=== PATIENT | male | born 1985 | race African-American/Black ===

== ENCOUNTER 2018-01-21 16:54 | Inpatient (IN) | payer MEDICAID ==
[~2018-01-21] VITALS: Ht 205.7 cm; Wt 113.4 kg
[2018-01-21] MEDS ORDERED: KETOROLAC 30MG/ML VIAL IM ONE (21:15)
[2018-01-21 22:57] LABS: CHLORIDE 108 mEq/L (98-107)
[2018-01-21 22:59] LABS: BASOPHILS % 0.5 % (0.0-2.0); EOSINOPHILS % 3.9 % (0.0-5.0); HEMATOCRIT. 40.3 % (42.0-52.0); HEMOGLOBIN. 13.3 g/dL (14.0-18.0); LYMPHOCYTES % 19.3 % (20.0-50.0); MEAN CORPUSCULAR HEMOGLOBIN 27.8 pg (28.0-32.0); MEAN CORPUSCULAR VOLUME 84.5 fL (80.0-94.0); MEAN PLATELET VOLUME 8.3 fl (7.4-10.4); MONOCYTES % 9.8 % (2.0-8.0); NEUTROPHILS % 66.5 % (40.0-76.0); PLATELET 281 x1000/uL (130-400); RED BLOOD CELL COUNT 4.77 mill/uL (4.7-6.1)
[2018-01-22] MEDS ORDERED: VANCOMYCIN 1 G PREMIX 200 ML IV SCH
[2018-01-22] MEDS ORDERED: CEFTRIAXONE 1 G PREMIX 50 ML IV ONE
[2018-01-22] MEDS ORDERED: GUAIFENESIN 200MG/10ML SUGAR FREE UDC PO PRN (00:30)
[2018-01-22] MEDS ORDERED: LORAZEPAM 2MG/ML CPJ IV PRN (00:30)
[2018-01-22] MEDS ORDERED: NA PHOS,M-B/NA PHOS,DI-BA ENEMA 118ML PR PRN (00:30)
[2018-01-22] MEDS ORDERED: IPRATROPIUM/ALBUTEROL 0.5-3(2.5)MG/3ML NEB INH PRN (00:30)
[2018-01-22] MEDS ORDERED: CLONIDINE 0.1MG TABLET PO PRN (00:30)
[2018-01-22] MEDS ORDERED: ONDANSETRON HCL 4MG/2ML INJ IV PRN (00:30)
[2018-01-22] MEDS ORDERED: DOCUSATE SODIUM 100MG CAPSULE PO PRN (00:30)
[2018-01-22] MEDS ORDERED: ACETAMINOPHEN 325MG TABLET PO PRN (00:30)
[2018-01-22] MEDS ORDERED: MAGNESIUM/ALUMINUM HYDROXIDE/SIMETHICONE 30ML UDC PO PRN (00:30)
[2018-01-22] MEDS ORDERED: MORPHINE SULFATE 4 MG/ML CPJ (NOT FOR IM USE) IV PRN (00:30)
[2018-01-22] MEDS ORDERED: DIPHENHYDRAMINE 50MG/ML VIAL IV PRN (00:30)
[2018-01-22 08:00] VITALS: BP 144/89
[2018-01-22] MEDS ORDERED: ENOXAPARIN 40MG/0.4ML SYR SUBCUT SCH (09:00)
[2018-01-22] MEDS ORDERED: LORAZEPAM 0.5MG TABLET PO PRN (09:45)
[2018-01-22] MEDS: HYDROCODONE/ACETAMINOPHEN 5/325MG TABLET PO PRN (09:53)
[2018-01-22 10:04] VITALS: BP 144/89
[2018-01-22] MEDS ORDERED: VANCOMYCIN 1500MG in DEXTROSE 5% WATER 250ML IV SCH (11:00)
[2018-01-22 12:00] VITALS: BP 160/56
[2018-01-22] MEDS: PIPERACILLIN/TAZ 3.375G PREMIX 50 ML IV SCH ×3 (12:45→20:19)
[2018-01-22 13:12] LABS: CHLORIDE 104 mEq/L (98-107)
[2018-01-22 16:00] VITALS: BP 134/74
[2018-01-22 20:00] VITALS: BP 128/83
[2018-01-22] MEDS: ENOXAPARIN 30MG/0.3ML SYR SUBCUT SCH (20:20)
[2018-01-22] MEDS: VANCOMYCIN 1500MG in DEXTROSE 5% WATER 250ML IV SCH (21:17)
[2018-01-23] VITALS: BP 150/70
[2018-01-23 04:00] VITALS: BP 143/88
[2018-01-23 06:25] LABS: BASOPHILS % 0.7 % (0.0-2.0); EOSINOPHILS % 4.7 % (0.0-5.0); HEMATOCRIT. 41.8 % (42.0-52.0); HEMOGLOBIN. 13.6 g/dL (14.0-18.0); LYMPHOCYTES % 27.5 % (20.0-50.0); MEAN CORPUSCULAR HEMOGLOBIN 27.6 pg (28.0-32.0); MEAN CORPUSCULAR VOLUME 84.8 fL (80.0-94.0); MEAN PLATELET VOLUME 8.5 fl (7.4-10.4); MONOCYTES % 7.7 % (2.0-8.0); NEUTROPHILS % 59.4 % (40.0-76.0); PLATELET 313 x1000/uL (130-400); RED BLOOD CELL COUNT 4.93 mill/uL (4.7-6.1); RED CELL DISTRIBUTION WIDTH 12.6 % (11.6-14.6)
[2018-01-23] MEDS: VANCOMYCIN 1500MG in DEXTROSE 5% WATER 250ML IV SCH (06:26)
[2018-01-23] MEDS: PIPERACILLIN/TAZ 3.375G PREMIX 50 ML IV SCH ×2 (06:26→10:47)
[2018-01-23 06:50] LABS: CHLORIDE 102 mEq/L (98-107)
[2018-01-23 06:56] LABS: LDL CHOLESTEROL 106 mg/dL (5-100)
[2018-01-23 06:58] LABS: HDL CHOLESTEROL 23 mg/dL (40-59)
[2018-01-23 08:00] VITALS: BP 135/90
[2018-01-23] MEDS: HYDROCODONE/ACETAMINOPHEN 5/325MG TABLET PO PRN (08:36)
[2018-01-23] MEDS: ENOXAPARIN 30MG/0.3ML SYR SUBCUT SCH (08:36)
[2018-01-23 11:37] VITALS: BP 135/90
[2018-01-23 12:00] VITALS: BP 152/90
[2018-01-23] MEDS ORDERED: VANCOMYCIN 1250MG in DEXTROSE 5% WATER 250ML IV SCH (14:00)
== END 2018-01-23 12:51 | disposition home or self-care (01) | DRG 383 ==
LOC: ER 16:54 → 6EST 01-22 00:28 → EDBEDREQTM 01-22 01:52 → EDBEDREQ 01-22 01:52 → EDBEDREQDT 01-22 01:52 → ENRESERV 01-22 07:54 → CANRESERV 01-22 07:54 → ENRESERV 01-22 08:28
PROVIDERS: ADMIT Internal Medicine; ATTEND Internal Medicine
DX: L03.115 Cellulitis of right lower limb (principal); E87.8 Other disorders of electrolyte and fluid balance, not elsewhere classified; F17.210 Nicotine dependence, cigarettes, uncomplicated; T63.301A Toxic effect of unspecified spider venom, accidental (unintentional), initial encounter; Y92.89 Other specified places as the place of occurrence of the external cause
CPT/HCPCS: 36415; 73562; 80048; 80061; 80202; 83605; 85651; 86140; 96372; 99285; J0696; J1650; J1885; J2270; J2543; J3370; J7040; J7060

== ENCOUNTER 2019-09-16 12:36 | Emergency (ER) | payer MEDICAID ==
[~2019-09-16] VITALS: Ht 205.7 cm; Wt 105.0 kg
[2019-09-16] MEDS ORDERED: CEPHALEXIN 250MG CAPSULE PO ONE (13:15)
[2019-09-16 15:39] VITALS: BP 131/76
== END 2019-09-16 15:40 | disposition home or self-care (01) ==
LOC: ER 12:36
DX: L03.116 Cellulitis of left lower limb (principal); R03.0 Elevated blood-pressure reading, without diagnosis of hypertension; F12.90 Cannabis use, unspecified, uncomplicated
CPT/HCPCS: 93005; 93971; 99284

== ENCOUNTER 2021-12-15 17:48 | Emergency (ER) | payer MEDICAID, OTHER ==
[~2021-12-15] VITALS: Ht 208.3 cm; Wt 100.0 kg
[2021-12-15 18:02] VITALS: BP 137/88
== END 2021-12-15 21:15 | disposition left against medical advice (07) ==
LOC: ER 17:48
DX: Z53.21 Procedure and treatment not carried out due to patient leaving prior to being seen by health care provider (principal); R53.1 Weakness
CPT/HCPCS: 82962; 93005